=== PATIENT | male | born 1955 | race Caucasian/White ===

== ENCOUNTER 2016-09-25 12:31 | Inpatient (IN) ==
[2016-09-25] MEDS ORDERED: *HR* HYDROmorphone 2 MG/ML SYRINGE IVP ONE ×2 (13:09→15:34)
[2016-09-25] MEDS ORDERED: Ondansetron 4 MG/2 ML VIAL IVP ONE (13:10)
[2016-09-25] MEDS ORDERED: 0.9 % Sodium Chloride 1,000 ML IVC SCH (13:15)
[2016-09-25 13:39] LABS: Basophils # 0.1 K/mcL (0.0-0.2); Eosinophils # 0.1 K/mcL (0.0-0.6); Eosinophils % 1.7 %; Hematocrit 43.2 % (37.5-50.1); Hemoglobin 14.7 g/dL (12.9-16.9); Immature Granulocytes % 0.2 % (0-4); Lymphocytes # 1.5 K/mcL (0.6-4.6); Lymphocytes % 25.2 %; Mean Corpuscular Hemoglobin 33.6 pg (28.0-33.3); Mean Corpuscular Volume 98.9 fL (83.0-100.0); Mean Platelet Volume 10.6 fL (9.4-12.4); Monocytes # 0.4 K/mcL (0.0-1.3); Monocytes % 6.5 %; Neutrophils # 3.9 K/mcL (1.6-8.9); Platelet Count 197 K/mcL (140-400); Red Blood Count 4.37 M/mcL (4.19-5.50); Red Cell Distribution Width 14.4 % (11.5-14.5); Segmented Neutrophils % 65.4 %
[2016-09-25 13:56] LABS: Alanine Aminotransferase 9 Units/L (0-55); Albumin 3.6 g/dL (3.5-5.0); Albumin/Globulin Ratio 0.8 (1.1-2.2); Alkaline Phosphatase 130 Units/L (38-126); Aspartate Amino Transferase 17 Units/L (5-34); BUN/Creatinine Ratio 8 (6-26); Bilirubin,Total 0.5 mg/dL (0.2-1.2); Blood Urea Nitrogen 11 mg/dL (8-26); Carbon Dioxide 27 mEq/L (19-29); Chloride 101 mEq/L (98-109); Globulin 4.4 g/dL (2.4-3.5); Glucose 137 mg/dL (70-99); Lipase 10 Units/L (8-78); Osmolality,Calculated 288 (280-300); Potassium 3.2 mEq/L (3.5-4.5); Sodium 138 mEq/L (136-145); eGFR For African Americans > 60 (> 60); eGFR For Non-African Americans 55 (> 60)
--- NOTE | 2016-09-25 15:33 | Emergency Department Note ---
Disposition Clinical Impression: Abdominal pain Qualifiers: Abdominal location: generalized Qualified Code(s): R10.84 - Generalized abdominal pain Disposition: Admitted As Inpatient Time of Disposition: 16:25 Abdominal Pain HPI - General Chief Complaint: ED Abdominal Pain Stated Complaint: Blocked Bowel Time Seen by Provider: 09/25/16 13:05 Source: patient - History of Present Illness HPI Narrative: Mr. 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 Mr. Muñiz presents with 1 week history of nausea, vomitting, diarrhea, and constipation. He took a large amount of metamucil this weekend which resulted in diarrhea. Mr. Muñiz denies any fevers, chest pain, shortness of breath, dysuria, hematuria, or increased frequency in urination. He does however state he has had a few episodes of hematochezia. Pain Scale: 8 - Related Data Home Medications Medication Instructions Recorded Confirmed Celecoxib [Celebrex] 200 mg PO BID 09/25/16 09/25/16 Duloxetine HCl [Cymbalta] 120 mg PO DAILY 09/25/16 09/25/16 HYDROmorphone [Dilaudid] 8 mg PO Q6HR PRN 09/25/16 09/25/16 Levothyroxine [Levothyroxine 274 mcg PO DAILY@0630 09/25/16 09/25/16 Sodium] amLODIPine [Norvasc] 5 mg PO DAILY 09/25/16 09/25/16 diazePAM [Valium] 5 mg PO Q6H PRN 09/25/16 09/25/16 Allergies Allergy/AdvReac Type Severity Reaction Status Date / Time No Known Allergies Allergy Verified 10/16/14 16:44 Constitutional: Denies: fever, chills Cardiovascular: Denies: chest pain, palpitations, orthopnea, edema, syncope Respiratory: Denies: cough, dyspnea Gastrointestinal: Reports: abdominal pain, nausea, vomiting, diarrhea, constipation, hematochezia Musculoskeletal: Reports: back pain Integumentary: Denies: rash Neurological: Reports: weakness, numbness. Denies: headache Abdominal Pain PMH - Past Medical History Medical history: Reports: hypertension, thyroid disease, other Psychiatric history: Reports: depression - Social History Smoking status: Current every day smoker Alcohol use: Reports: none Drug use: Reports: none Physical Exam - General Limitations: no limitations General appearance: alert, in no apparent distress - Respiratory Respiratory exam: Present: normal lung sounds bilaterally. Absent: respiratory distress, wheezes - Cardiovascular Cardiovascular exam: Present: regular rate, normal rhythm. Absent: tachycardia , irregular rhythm, systolic murmur, diastolic murmur, rubs, gallop - Abdominal Exam Abdominal exam: Present: soft, normal bowel sounds. Absent: distention, guarding, rebound, rigidity - Extremities Exam Extremities exam: Absent: pedal edema - Back Exam Back exam: Absent: CVA tenderness (R), CVA tenderness (L) - Neurological Exam Neurological exam: Present: alert, oriented X3 - Psychiatric Psychiatric exam: Present: anxious, other (Patient talking slowly. ) Course Course Narrative: Patient's CT scan shows rectal wall thickening suggestive of malignancy. With intractable abdominal pain. Will consult medicine for inpatient workup. - Reevaluation(s) Reevaluation #1: Spoke with Dr. Winn on medicine service. They will admit patient. Vital Signs Temperature 98.3 F 09/25/16 12:32 Pulse Rate 60 09/25/16 12:32 Respiratory Rate 18 09/25/16 12:32 Blood Pressure 152/97 09/25/16 12:32 O2 Sat by Pulse Oximetry 97 09/25/16 12:32 Temperature 98.3 F 09/25/16 12:32 Pulse Rate 75 09/25/16 16:11 Respiratory Rate 14 09/25/16 16:11 Blood Pressure 139/83 09/25/16 16:11 O2 Sat by Pulse Oximetry 93 09/25/16 16:11 Oxygen Delivery Oxygen Delivery Room Air Abdominal Pain - Differential Diagnosis Differential Diagnosis: Likely: abdominal pain non-specific - Medical Records Medical records reviewed: Yes I reviewed the patient's medical records. - Lab Data Lab results reviewed: Yes I reviewed the patient's lab results. Result diagrams: 09/25/16 13:27 09/25/16 13:27 - Radiology Data Radiology results reviewed: Yes I reviewed the patient's radiology results. Abdomen/Pelvis CT 09/25/16 14:30 IMPRESSION: There is some questionable asymmetric rectal wall thickening along the right. Although this may be artifactual due to peristalsis or some adherent stool, malignancy is not excluded. Clinical correlation recommended. Trabeculated appearing bladder which may be related to chronic bladder outlet obstruction or neurogenic bladder. D/ / Drea Chamberlain MD / Drea Chamberlain MD Interpreting Provider: Drea Chamberlain MD Attestation Statement - Attestation Attestation: Patient was seen with resident physician. I reviewed the history, physical, assessment and plan, and agree with the findings. I also personally evaluated this patient and had [id number] time with this patient. 61-year-old male presents to the emergency department with chief complaint of thinking he has a bowel obstruction. Patient has a history of abdominal issues since . He says the last week had nausea vomiting and intermittent diarrhea and constipation. He has tried multiple enemas and stool softeners without significant improvement in his symptoms. He has also had intermittent what he thinks may be blood in his stool but not recently. He also has diffuse abdominal pain especially in the left side with his symptoms. On examination vital signs are stable ENT is unremarkable heart and lungs normal. Abdomen is soft there is tenderness diffusely especially in the left side without guarding or rigidity extremities are unremarkable neurologically patient is intact. ED course CT scan of the abdomen and pelvis revealed changes in the colon consistent with possible malignancy. He was given several doses of pain medication without significant improvement in his abdominal pain. Patient does have a history of chronic pain management issues, but even with significant dosing here we are unable to get him comfortable. Accommodation the fact that he may have a new malignancy, we felt it important to admit the patient for both pain control and management as well as additional workup is indicated. Hospital service was notified. They agreed to accept the patient for admission to the hospital for further evaluation and treatment. The dynamically patient remained stable in the emergency department. Agree with resident physician assessment and plan.
[2016-09-25] MEDS ORDERED: 0.9 % Sodium Chloride 1,000 ML IVC ONE (15:34)
[2016-09-25] MEDS ORDERED: *HR* LORazepam 2 MG/ML VIAL IVP ONE (15:54)
--- NOTE | 2016-09-25 17:29 | Internal Med History&Physical ---
<DeenaUlises Finch - Last Filed: 09/25/16 19:55> Date of Encounter: 09/25/16 Time of Encounter: 17:00 Assessment and Plan (1) Chronic constipation Current visit: Yes Status: Acute Patient has history of chronic constipation due to opioid pain medication use. Patient presents with acute on chronic constipation during this admission which is causing abdominal pain and scant amounts of diarrhea. CT of abdomen and pelvis today with IV and oral contrast shows questionable asymmetric rectal wall thickening along the right which may be artifactual due to peristalsis or some adherent stool but malignancy cannot be excluded. Clinical correlation recommended. Surgical consult placed with orders for rectal enemas and MiraLAX/ Gatorade prep. Patient's previous colonoscopy was 10 years ago. Colonoscopy may be ordered based on surgical consult recommendations. Will hold patient's Dilaudid at present time. IV fluids 100 mL per hour ordered and patient to be placed on full liquid diet to be advanced as tolerated. Monitor I&O. (2) Nausea & vomiting Current visit: Yes Status: Acute Patient reports nausea and vomiting for the past three weeks which has worsened and is accompanied by chronic constipation with scant amounts of diarrhea. IV Zofran ordered PRN and IVP Protonix 40 mg daily ordered. Will monitor patient for continued signs of N/V and monitor I&O. Qualifiers: Vomiting type: cyclical vomiting Vomiting Intractability: non-intractable Qualified Code(s): G43.A0 - Cyclical vomiting, not intractable (3) Abdominal pain Current visit: Yes Status: Acute Patient presents with acute abdominal pain related to chronic constipation and probable bowel obstruction based on CT today which shows questionable asymmetric rectal wall thickening along the right which may be due to peristalsis or some adherent stool, but malignancy cannot be excluded. Consult to surgery placed and discussed. Orders for rectal enemas and Miralax/Gatorade bowel prep placed to relieve constipation/possible impaction. Will monitor I&O. IV Zofran ordered PRN. IVP Protonix 40 mg daily ordered. Will hold patient's Dilaudid due to history of chronic constipation due to opioid pain medication use. Qualifiers: Abdominal location: generalized Qualified Code(s): R10.84 - Generalized abdominal pain (4) Neurogenic bladder Current visit: Yes Status: Acute Patient presents with neurogenic bladder based on CT scan of abdomen today which showed trabeculated appearing bladder which may be related to chronic bladder outlet obstruction or neurogenic bladder. Bladder scan performed at bedside which showed residual amount of 520. Mena catheter ordered. Will monitor I&O. Urine culture ordered in ED and we will review results when available. (5) Tobacco abuse counseling Current visit: Yes Status: Acute Patient is current smoker reporting he smokes one half pack per day. Patient counseled for 10 minutes on importance of tobacco cessation which he confirms understanding and agreement. Nicotine patch 21 mg ordered daily. (6) Muscle spasm of both lower legs Current visit: Yes Status: Chronic Patient presents with chronic muscle spasms of both lower extremities. Patient reports he previously took Valium 10 mg every 6 for muscle spasms but his PCP reduced dosage to 5 mg Q6 which he states is ineffective. Will change valium 5 mg to PRN and add Flexeril 10 mg TID scheduled as first line for spasms. Will not give both medications due to contraindications. If Flexeril is effective, will stop Valium order. (7) Thyroid disease Current visit: Yes Status: Chronic Patient presents with history of chronic thyroid disease. Will continue patient' s Synthroid. (8) HTN (hypertension) Current visit: Yes Status: Chronic Patient presents with history of chronic hypertension. Monitor patient vital signs. Will continue patient's Norvasc. Qualifiers: Hypertension type: essential hypertension Qualified Code(s): I10 - Essential (primary) hypertension (9) DVT prophylaxis Current visit: Yes Status: Acute Patient to be placed on DVT prophylaxis due to current admission protocol and bed rest status. Heparin 5,000 units SQ Q8 ordered. Internal Medicine - H&P: HPI Chief complaint: Abdominal Pain d/t Blocked Bowel Admitted From: Emergency Dept Plans for Post Hospital Care: Home History of present illness: Mr. Muñiz is a 61 year old male who presents from the ED with chief complaint of abdominal pain related to inability to have bowel movement. Patient reports nausea, vomiting, constipation, and small amounts of diarrhea for the past 3 weeks. He states last bowel movement was last night with scant amount of nonbloody diarrhea. He also reports fevers and chills. Patient has a history of constipation due to opioid pain medications. Patient also reports urinary retention problems and only is able to void small amounts. Patient denies chest pain, shortness of breath, dysuria, unusual bleeding, altered mental status, falls, or recent illness. CT of the abdomen and pelvis today with IV and oral contrast shows there is some questionable asymmetric rectal wall thickening along the right. Although this may be artifactual due to peristalsis or some adherent stool, malignancy is not excluded. Clinical correlation recommended trabeculated appearing bladder which may be related to chronic bladder outlet obstruction or neurogenic bladder. Patient is at moderate risk for further morbidity due to current symptoms and he will be placed as inpatient status with orders for surgical consult due to current fecal impaction and possible colonoscopy. Patient reports previous colonoscopy was 10 years ago. Orders for rectal enemas and MiraLAX with Gatorade bowel prep placed per discussion with surgical consult. Patient received IV fluids at 100 mL per hour with orders for IV Zofran when necessary an IVP Protonix 40 mg daily. We will insert Mena catheter for patient's urinary retention based on bladder scan which was performed showing 520 residual. Patient to be placed on liquid diet to be advanced as tolerated. Will monitor patient's I&O. Time spent with patient >50 minutes. Past Med Surg Social Fam HX - Past Medical History Source: patient Medical history: hypertension, thyroid disease, other Psychiatric history: depression - Past Surgical History Surgical History: appendectomy, other - Social History Smoking Status: Current every day smoker Packs per day: 1/2 PPD Smokeless Tobacco Status: No Alcohol use: none Drug use: none Current living situation: Home Activity Level: Independent ambulation Recent Out of Country Travel Within the Last 8 Weeks: No Exposure or Possible Exposure to Illness During Travel: No - Family History Mother Race: Family Member Ethnicity: Non- Living Status: Age at : 57 Cause of : Metastatic cancer of the lung to the brain Hx Family Cancer: Yes (Lung cancer with mets to brain) Father Race: Family Member Ethnicity: Non- Living Status: Age at : 74 Cause of : HD Hx Family Cardiac Disorders: Yes (HTN, HD) Hx Family Endocrine Disorder: Yes (Thyroid disease) Brother Race: Family Member Ethnicity: Non- Living Status: Still Living Hx Family Musculoskeletal Disorders: Yes (RA) Sister Race: Family Member Ethnicity: Non- Living Status: Still Living Hx Family Medical Disorders: No Internal Medicine - H&P: Meds Celecoxib [Celebrex] 200 mg PO BID 09/25/16 [History] Duloxetine HCl [Cymbalta] 120 mg PO DAILY 09/25/16 [History] HYDROmorphone [Dilaudid] 8 mg PO Q6HR PRN 09/25/16 [History] Levothyroxine [Levothyroxine Sodium] 274 mcg PO DAILY@0630 09/25/16 [History] amLODIPine [Norvasc] 5 mg PO DAILY 09/25/16 [History] diazePAM [Valium] 5 mg PO Q6H PRN 09/25/16 [History] Allergies No Known Allergies Allergy (Verified 10/16/14 16:44) All Systems PM: A 10-system review of systems was performed and is negative for pertinent findings except as documented above in the HPI. - Constitutional Constitutional: no chills, no fever(s), no night sweats - EENT Eyes: no change in vision, no discharge, no pain, no photophobia Ears: no ear discharge, no ear pain, no tinnitus Nose, mouth and throat: no dysphagia, no nasal discharge, no neck pain, no sore throat - Breasts Breasts: as per HPI - Cardiovascular Cardiovascular ROS IM: no chest pain, no diaphoresis, no dyspnea, no lightheadedness, no palpitations, no syncope - Respiratory Respiratory: no cough, no dyspnea, no wheezing, no excessive phlegm production - Gastrointestinal Gastrointestinal: as per HPI, abdominal pain, constipation, diarrhea (Small amounts), nausea, vomiting - Genitourinary Genitourinary ROS male: as per HPI, difficulty urinating, urinary hesitancy - Musculoskeletal Musculoskeletal ROS IM: as per HPI, muscle cramps, no numbness, no tingling - Integumentary Integumentary IM: no rash, no unusual bruising - Neurological Neurological ROS: no confusion, no convulsions, no focal weakness, no numbness, no tingling, no tremor(s) - Psychiatric Psychiatric: as per HPI - Endocrine Endocrine IM: as per HPI - Hematologic/Lymphatic Hematologic/Lymphatic: no easy bruising - Allergic/Immunologic Allergic/Immunologic: as per HPI - Constitutional Vitals: Temp Pulse Resp BP Pulse Ox 98.3 F 75 14 131/80 93 09/25/16 12:32 09/25/16 16:11 09/25/16 17:13 09/25/16 17:13 09/25/16 16:11 General appearance: Present: cooperative, A&O X 3, pleasant, no acute distress, obese, answers questions appropriately - Head Head exam: Present: atraumatic, normocephalic - Eye Eye exam: Present: PERRL, conjuntiva pink, sclera anicteric Pupils: Present: PERRL - ENT ENT exam: Present: normal exam, normal external ear exam - Neck Neck exam general surgery: Present: normal inspection, supple, trachea midline. Absent: lymphadenopathy - Respiratory Respiratory exam: Present: CTAB. Absent: accessory muscle use, rales, rhonchi, wheezes - Cardiovascular Cardiovascular exam: Present: RRR, +S1, +S2. Absent: diastolic murmur, gallop, rubs, systolic murmur - GI/Abdominal GI/Abdominal exam: Present: diminished bowel sounds, soft, tenderness - Rectal Rectal exam: Present: fecal impaction - External exam: Present: normal external exam - Extremities Exam Extremities exam: Present: warm, radial pulses palpable and symmetrical. Absent : calf tenderness, cyanotic, pedal edema - Back Exam Back exam: Present: normal inspection - Neurological Exam Neurological exam: Present: CN II-XII intact, oriented X3, no focal deficits. Absent: pronater drift, facial droop, speech deficit - Psychiatric Psychiatric exam: Present: normal affect, normal mood - Skin Skin exam: Present: dry, intact Internal Med - H&P Results - Labs CBC & Chem 7: 09/25/16 13:27 09/25/16 13:27 - Diagnostic Studies CT scan - abdomen Additional comments: Impressions Abdomen/Pelvis CT 09/25/16 14:30 IMPRESSION: There is some questionable asymmetric rectal wall thickening along the right. Although this may be artifactual due to peristalsis or some adherent stool, malignancy is not excluded. Clinical correlation recommended. Trabeculated appearing bladder which may be related to chronic bladder outlet obstruction or neurogenic bladder. D/ / Drea Chamberlain MD / Drea Chamberlain MD Interpreting Provider: Drea Chamberlain MD <Juan Mcpherson - Last Filed: 09/26/16 17:37> Date of Encounter: 09/26/16 Internal Medicine - H&P: HPI History of present illness: Mr. Muñiz is a 61 year old male All Systems PM: A 10-system review of systems was performed and is negative for pertinent findings except as documented above in the HPI. - Constitutional Vitals: Temp Pulse Resp BP Pulse Ox 97.5 F L 76 18 160/91 97 09/26/16 15:24 09/26/16 15:24 09/26/16 15:24 09/26/16 15:24 09/26/16 15:24 Internal Med - H&P Results - Labs CBC & Chem 7: 09/26/16 05:57 09/26/16 05:57 Labs: Short CBC 09/26/16 Range/Units 05:57 WBC 3.7 L (4.3-11.1) K/mcL Hgb 12.9 D (12.9-16.9) g/dL Hct 38.8 (37.5-50.1) % Plt Count 157 (140-400) K/mcL Neutrophils # 1.9 (1.6-8.9) K/mcL BMP 09/26/16 05:57 Sodium 140 Potassium 3.6 Chloride 107 Carbon Dioxide 28 BUN 7 L Creatinine 1.06 Glucose 81 Calcium 8.2 L Urine 09/25/16 Range/Units 20:00 Urine Color Yellow (Yellow) Urine Clarity Clear (Clear) Urine pH 6.0 (5.0-8.0) pH Units Ur Specific [place] > 1.030 H (1.010-1.025) Urine Protein Negative (Neg-Trace) mg/dL Urine Glucose (UA) Normal (Normal) mg/dL - Attending Attestation I examined this patient and my medical decision-making was reviewed with the IMPROVEMENT MANAGER. I agree with the documented findings, disposition and treatment plan as described .
[2016-09-25] MEDS ORDERED: Ondansetron 4 MG/2 ML VIAL IVP PRN (18:00)
[2016-09-25] MEDS ORDERED: Naloxone 0.4 MG/ML INJ IVP PRN (18:00)
[2016-09-25] MEDS ORDERED: Polyethylene Glycol 3350 255 GM POWDER PO ONE (18:15)
[2016-09-25] MEDS: Pantoprazole 40 MG VIAL IVP SCH (18:46)
[2016-09-25] MEDS: 0.9 % Sodium Chloride 1,000 ML IVC SCH (18:47)
[2016-09-25 20:23] LABS: Bilirubin,Urine Negative (Negative); Blood,Urine Negative (Negative); Clarity,Urine Clear (Clear); Color,Urine Yellow (Yellow); Glucose,Urine (UA) Normal (Normal); Ketones,Urine Negative (Negative); Leukocyte Esterase,Urine Negative (Negative); Nitrite,Urine Negative (Negative); Protein,Urine Negative (Neg-Trace); Specific Gravity,Urine > 1.030 (1.010-1.025); Urobilinogen,Urine Normal (Normal)
[2016-09-25] MEDS: Celecoxib 200 MG CAPSULE PO SCH (21:49)
[2016-09-25] MEDS: Nicotine 21 MG PATCH.TD24 TD SCH (21:49)
[2016-09-26] MEDS: *HR* Heparin 5,000 UNIT/ML VIAL SQ SCH ×3 (02:23→16:54)
[2016-09-26 06:18] LABS: Basophils % 1.1 %; Eosinophils # 0.1 K/mcL (0.0-0.6); Eosinophils % 2.5 %; Hematocrit 38.8 % (37.5-50.1); Immature Granulocytes % 0.3 % (0-4); Lymphocytes # 1.3 K/mcL (0.6-4.6); Lymphocytes % 36.7 %; Mean Corpuscular HGB Conc 33.2 g/dL (31.6-35.5); Mean Corpuscular Hemoglobin 33.3 pg (28.0-33.3); Mean Corpuscular Volume 100.3 fL (83.0-100.0); Mean Platelet Volume 10.8 fL (9.4-12.4); Monocytes # 0.3 K/mcL (0.0-1.3); Monocytes % 8.8 %; Neutrophils # 1.9 K/mcL (1.6-8.9); Platelet Count 157 K/mcL (140-400); Red Blood Count 3.87 M/mcL (4.19-5.50); Red Cell Distribution Width 14.7 % (11.5-14.5); Segmented Neutrophils % 50.6 %
[2016-09-26 06:19] LABS: Hemoglobin 12.9 g/dL (12.9-16.9)
[2016-09-26 06:20] LABS: INR 1.2; Prothrombin Time 12.9 Seconds (9.4-12.1)
[2016-09-26 06:23] LABS: Activated Partial Thrombo Time 36.1 Seconds (26.0-36.0)
[2016-09-26 06:27] LABS: BUN/Creatinine Ratio 7 (6-26); Blood Urea Nitrogen 7 mg/dL (8-26); Calcium 8.2 mg/dL (8.6-10.8); Carbon Dioxide 28 mEq/L (19-29); Chloride 107 mEq/L (98-109); Chol/HDL Ratio 7.3 (0-4.9); Cholesterol 154 mg/dL (< 200); Glucose 81 mg/dL (70-99); HDL Cholesterol 21 mg/dL (40-59); LDL Cholesterol,Calculated 94 mg/dL (0-99); Magnesium 1.7 mg/dL (1.6-2.6); Osmolality,Calculated 287 (280-300); Potassium 3.6 mEq/L (3.5-4.5); Sodium 140 mEq/L (136-145); Triglycerides 195 mg/dL (< 150); eGFR For African Americans > 60 (> 60); eGFR For Non-African Americans > 60 (> 60)
[2016-09-26] MEDS: 0.9 % Sodium Chloride 1,000 ML IVC SCH ×2 (07:00→18:41)
[2016-09-26] MEDS: Celecoxib 200 MG CAPSULE PO SCH ×2 (09:08→20:53)
[2016-09-26] MEDS: amLODIPine 5 MG TABLET PO SCH (09:08)
[2016-09-26] MEDS: Nicotine 21 MG PATCH.TD24 TD SCH (09:09)
[2016-09-26] MEDS: Pantoprazole 40 MG VIAL IVP SCH (09:10)
[2016-09-26] MEDS: diazePAM 5 MG TABLET PO PRN ×2 (11:54→16:54)
--- NOTE | 2016-09-26 14:32 | General Surgery Consult Note ---
<Delbert Hartman - Last Filed: 09/26/16 16:21> Date of Encounter: 09/26/16 Time of Encounter: 14:20 Assessment and Plan (1) Abdominal pain Current Visit: Yes Status: Acute The patient had BM yesterday night and symptoms are improving. He has surgical history of emergent appendectomy. Patient has chronic constipation secondary to opioid pain management. 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 His colonoscopy was over [address] abdomen/pelvis was unable to rule out malignancy or bowel obstruction Will set up appointment for outpatient colonoscopy to allow for bowel rest Hold dilaudid until colonoscopy, if possible Supportive and pain care Colace 100mg BID, Continue Miralax prn Continue Zofran and Protonix for nausea Ambulate TID Qualifiers: Abdominal location: generalized Qualified Code(s): R10.84 - Generalized abdominal pain (2) Chronic constipation Current Visit: Yes Status: Acute Follow plan for abdominal pain We recommend Linzess 72 mcg PO daily for bowel maintenance at home (3) Thyroid disease Current Visit: No Status: Chronic Continue Levothyroxine 274 mcg PO daily (4) HTN (hypertension) Current Visit: No Status: Chronic Continue home BP medications Qualifiers: Hypertension type: essential hypertension Qualified Code(s): I10 - Essential (primary) hypertension (5) Neurogenic bladder Current Visit: Yes Status: Acute Patient has good urine output via catheter Continue strict I/Os (6) DVT prophylaxis Current Visit: Yes Status: Acute Heparin 5000 unit [id number] for DVT prophylaxis History of Present Illness Reason for consult: abdominal pain (secondary to fecal impaction and possible) History of present illness: 61 year old male presented to ED yesterday for abdominal pain with nausea, vomiting, constipation, and irregular bowel movements for the past 3 weeks. The patient has a history of chronic constipation due to opioid pain management for back pain. Past surgical history includes emergent appendectomy secondary to a ruptured appendix. CT of the abdomen and pelvis revealed asymmetric rectal wall thickening along the right which may be due to artifact or adherent stool, but malignancy could not be ruled out. Rectal enemas and MiraLAX/Gatorade prep was administered and the patient had a bowel moment yesterday night. Zofran was given for his nausea. He reports that his abdominal pain is improved to 6/10. He still has nausea but has not vomited. He is afibrile and denies chills. He is tolerating full liquid diet. He is currently voiding via catheter secondary to chronic bladder outlet obstruction. His last colonoscopy was over 10 years ago. The patient reports that he prefers an inpatient colonoscopy done at this visit if possible. Past Med Surg Social Fam HX - Past Medical History Medical history: hypertension, thyroid disease, other Psychiatric history: depression - Past Surgical History Surgical History: appendectomy, other - Social History Smoking Status: Current every day smoker Packs per day: 1/2 PPD Smokeless Tobacco Status: No Alcohol use: none Drug use: none - Family History Mother Race: Family Member Ethnicity: Non- Living Status: Age at : 57 Cause of : Metastatic cancer of the lung to the brain Hx Family Cancer: Yes (Lung cancer with mets to brain) Father Race: Family Member Ethnicity: Non- Living Status: Age at : 74 Cause of : HD Hx Family Cardiac Disorders: Yes (HTN, HD) Hx Family Endocrine Disorder: Yes (Thyroid disease) Brother Race: Family Member Ethnicity: Non- Living Status: Still Living Hx Family Musculoskeletal Disorders: Yes (RA) Sister Race: Family Member Ethnicity: Non- Living Status: Still Living Hx Family Medical Disorders: No Medications and Allergies Celecoxib [Celebrex] 200 mg PO BID 09/25/16 [History] Duloxetine HCl [Cymbalta] 120 mg PO DAILY 09/25/16 [History] HYDROmorphone [Dilaudid] 8 mg PO Q6HR PRN 09/25/16 [History] Levothyroxine [Levothyroxine Sodium] 274 mcg PO DAILY@0630 09/25/16 [History] amLODIPine [Norvasc] 5 mg PO DAILY 09/25/16 [History] diazePAM [Valium] 5 mg PO Q6H PRN 09/25/16 [History] Allergies No Known Allergies Allergy (Verified 10/16/14 16:44) Review of Systems All systems PM: A 10-system review of systems was performed and is negative for pertinent findings except as documented above in the HPI. - Constitutional as per HPI, no anorexia, no chills, no fever(s) - Cardiovascular no chest pain, no diaphoresis, no dyspnea, no palpitations, no syncope - Respiratory no cough, no dyspnea - Gastrointestinal as per HPI, abdominal pain, nausea, no hematemesis, no vomiting - Genitourinary difficulty urinating, no dysuria, no flank pain, no hematuria General Surgery Exam Initial Vital Signs Temp Pulse Resp BP Pulse Ox 98.3 F 60 18 152/97 97 09/25/16 12:32 09/25/16 12:32 09/25/16 12:32 09/25/16 12:32 09/25/16 12:32 - General physical appearance well developed, well nourished, moderate distress - Eyes PERRL, normal ocular movement - ENT atraumatic, normocephalic, CN 2-12 grossly intact - Neck no masses, no bruits, trachea midline - Respiratory normal expansion, normal respiratory effort, clear to auscultation - Cardiovascular Cardiovascular exam: Present: RRR, no murmurs/rubs/gallops - Abdomen Abdomen general surgery: Present: bowel sounds present, soft, surgical scars ( 10 cm surgical scar from appendectomy on RUQ). Absent: guarding, rebound Abdominal Tenderness: Present: diffusely - Psychiatric Psychiatric general surgery: Present: A&Ox3, appropriate, oriented to person, oriented to place, oriented to time, speech is normal, memory intact Exam Initial Vital Signs Temp Pulse Resp BP Pulse Ox 98.3 F 60 18 152/97 97 09/25/16 12:32 09/25/16 12:32 09/25/16 12:32 09/25/16 12:32 09/25/16 12:32 Results - Labs 09/26/16 05:57 09/26/16 05:57 Abnormal lab results WBC 3.7 K/mcL (4.3-11.1) L 09/26/16 05:57 RBC 3.87 M/mcL (4.19-5.50) L 09/26/16 05:57 MCV 100.3 fL (83.0-100.0) H 09/26/16 05:57 RDW 14.7 % (11.5-14.5) H 09/26/16 05:57 PT 12.9 Seconds (9.4-12.1) H 09/26/16 05:57 APTT 36.1 Seconds (26.0-36.0) H 09/26/16 05:57 BUN 7 mg/dL (8-26) L 09/26/16 05:57 Lactic Acid 2.8 mmol/L (0.5-2.2) H 09/25/16 13:27 Calcium 8.2 mg/dL (8.6-10.8) L 09/26/16 05:57 Alkaline Phosphatase 130 Units/L (38-126) H 09/25/16 13:27 Globulin 4.4 g/dL (2.4-3.5) H 09/25/16 13:27 Albumin/Globulin Ratio 0.8 (1.1-2.2) L 09/25/16 13:27 Triglycerides 195 mg/dL (< 150) H 09/26/16 05:57 VLDL Cholesterol, Calc 39 mg/dL (< 31) H 09/26/16 05:57 HDL Cholesterol 21 mg/dL (40-59) L 09/26/16 05:57 Cholesterol/HDL Ratio 7.3 (0-4.9) H 09/26/16 05:57 Ur Specific [place] > 1.030 (1.010-1.025) H 09/25/16 20:00 Diabetes panel 09/26/16 Range/Units 05:57 Sodium 140 (136-145) mEq/L Potassium 3.6 (3.5-4.5) mEq/L Chloride 107 (98-109) mEq/L Carbon Dioxide 28 (19-29) mEq/L BUN 7 L (8-26) mg/dL Creatinine 1.06 (0.72-1.25) mg/dL Glucose 81 (70-99) mg/dL Calcium 8.2 L (8.6-10.8) mg/dL Triglycerides 195 H (< 150) mg/dL HDL Cholesterol 21 L (40-59) mg/dL Calcium panel 09/26/16 Range/Units 05:57 Calcium 8.2 L (8.6-10.8) mg/dL Pituitary panel 09/26/16 Range/Units 05:57 Sodium 140 (136-145) mEq/L Potassium 3.6 (3.5-4.5) mEq/L Chloride 107 (98-109) mEq/L Carbon Dioxide 28 (19-29) mEq/L BUN 7 L (8-26) mg/dL Creatinine 1.06 (0.72-1.25) mg/dL Glucose 81 (70-99) mg/dL Calcium 8.2 L (8.6-10.8) mg/dL Adrenal panel 09/26/16 Range/Units 05:57 Sodium 140 (136-145) mEq/L Potassium 3.6 (3.5-4.5) mEq/L Chloride 107 (98-109) mEq/L Carbon Dioxide 28 (19-29) mEq/L BUN 7 L (8-26) mg/dL Creatinine 1.06 (0.72-1.25) mg/dL Glucose 81 (70-99) mg/dL Calcium 8.2 L (8.6-10.8) mg/dL All other labs normal. Consult Discharge Plan - Plan Referrals: Melania Garduno [Primary Care Provider] - <Donn Smith - Last Filed: 09/26/16 18:16> Date of Encounter: 09/26/16 Review of Systems All systems PM: A 10-system review of systems was performed and is negative for pertinent findings except as documented above in the HPI. General Surgery Exam Initial Vital Signs Temp Pulse Resp BP Pulse Ox 98.3 F 60 18 152/97 97 09/25/16 12:32 09/25/16 12:32 09/25/16 12:32 09/25/16 12:32 09/25/16 12:32 Exam Initial Vital Signs Temp Pulse Resp BP Pulse Ox 98.3 F 60 18 152/97 97 09/25/16 12:32 09/25/16 12:32 09/25/16 12:32 09/25/16 12:32 09/25/16 12:32 Results - Labs 09/26/16 05:57 09/26/16 05:57 Abnormal lab results WBC 3.7 K/mcL (4.3-11.1) L 09/26/16 05:57 RBC 3.87 M/mcL (4.19-5.50) L 09/26/16 05:57 MCV 100.3 fL (83.0-100.0) H 09/26/16 05:57 RDW 14.7 % (11.5-14.5) H 09/26/16 05:57 PT 12.9 Seconds (9.4-12.1) H 09/26/16 05:57 APTT 36.1 Seconds (26.0-36.0) H 09/26/16 05:57 BUN 7 mg/dL (8-26) L 09/26/16 05:57 Lactic Acid 2.8 mmol/L (0.5-2.2) H 09/25/16 13:27 Calcium 8.2 mg/dL (8.6-10.8) L 09/26/16 05:57 Alkaline Phosphatase 130 Units/L (38-126) H 09/25/16 13:27 Globulin 4.4 g/dL (2.4-3.5) H 09/25/16 13:27 Albumin/Globulin Ratio 0.8 (1.1-2.2) L 09/25/16 13:27 Triglycerides 195 mg/dL (< 150) H 09/26/16 05:57 VLDL Cholesterol, Calc 39 mg/dL (< 31) H 09/26/16 05:57 HDL Cholesterol 21 mg/dL (40-59) L 09/26/16 05:57 Cholesterol/HDL Ratio 7.3 (0-4.9) H 09/26/16 05:57 Ur Specific [place] > 1.030 (1.010-1.025) H 09/25/16 20:00 Diabetes panel 09/26/16 Range/Units 05:57 Sodium 140 (136-145) mEq/L Potassium 3.6 (3.5-4.5) mEq/L Chloride 107 (98-109) mEq/L Carbon Dioxide 28 (19-29) mEq/L BUN 7 L (8-26) mg/dL Creatinine 1.06 (0.72-1.25) mg/dL Glucose 81 (70-99) mg/dL Calcium 8.2 L (8.6-10.8) mg/dL Triglycerides 195 H (< 150) mg/dL HDL Cholesterol 21 L (40-59) mg/dL Calcium panel 09/26/16 Range/Units 05:57 Calcium 8.2 L (8.6-10.8) mg/dL Pituitary panel 09/26/16 Range/Units 05:57 Sodium 140 (136-145) mEq/L Potassium 3.6 (3.5-4.5) mEq/L Chloride 107 (98-109) mEq/L Carbon Dioxide 28 (19-29) mEq/L BUN 7 L (8-26) mg/dL Creatinine 1.06 (0.72-1.25) mg/dL Glucose 81 (70-99) mg/dL Calcium 8.2 L (8.6-10.8) mg/dL Adrenal panel 09/26/16 Range/Units 05:57 Sodium 140 (136-145) mEq/L Potassium 3.6 (3.5-4.5) mEq/L Chloride 107 (98-109) mEq/L Carbon Dioxide 28 (19-29) mEq/L BUN 7 L (8-26) mg/dL Creatinine 1.06 (0.72-1.25) mg/dL Glucose 81 (70-99) mg/dL Calcium 8.2 L (8.6-10.8) mg/dL All other labs normal. - Attending Attestation I examined this patient and my medical decision-making was reviewed with the Resident Physician. I agree with the documented findings, disposition and treatment plan as described except to the extent set forth below. Review the above assessment and evaluation and agree with the above plan. Patient states that he has not had a bowel movement and has less abdominal discomfort although he does point to his right upper quadrant vessel source of some pain. No nausea. Positive bowel movement however he does have a history of constipation with a bowel movement once every 2-3 days. This is likely due to his polypharmacy. I did personally reviewed the CT scan images showing a questionable thickening of the rectal wall versus adherent stool. His last colonoscopy was greater than 10 years. The patient is agreeable to follow-up as an outpatient possible colonoscopy as an outpatient.
--- NOTE | 2016-09-26 14:52 | Internal Med Progress Note ---
Date of Encounter: 09/26/16 Time of Encounter: 09:40 - Assessment and plan (1) Abdominal pain Current Visit: Yes Status: Acute Assessment and plan: Likely due to chronic constipation. Patent takes PO opiates at home and is not on bowel regimen. Surgery consulted for evaluation of rectal wall thickening on CT. Recommend bowel regimen to clear constipation. Moderate risk for complications. Qualifiers: Abdominal location: generalized Qualified Code(s): R10.84 - Generalized abdominal pain (2) Chronic constipation Current Visit: Yes Status: Acute Assessment and plan: Management as above (3) Muscle spasm of both lower legs Current Visit: Yes Status: Chronic Assessment and plan: Placed back on valium and oral dilaudid for symptom control. (4) Thyroid disease Current Visit: No Status: Chronic (5) HTN (hypertension) Current Visit: Yes Status: Chronic Assessment and plan: Uncontrolled likely due to pain. Will monitor and adjust antihypertensives accordingly. Qualifiers: Hypertension type: essential hypertension Qualified Code(s): I10 - Essential (primary) hypertension (6) Neurogenic bladder Current Visit: Yes Status: Acute Assessment and plan: Rawls catheter in place. Will plan on discharging patient with rawls and follow up with urology as outpatient. (7) Nausea & vomiting Current Visit: Yes Status: Resolved Assessment and plan: This has resolved Qualifiers: Vomiting type: cyclical vomiting Vomiting Intractability: non-intractable Qualified Code(s): G43.A0 - Cyclical vomiting, not intractable (8) DVT prophylaxis Current Visit: Yes Status: Acute - Subjective Interval history: Patient complaining of spasms in both lower extremities. He has not received Valium that was ordered last night. He has not yet had a bowel movement either. Tolerating oral diet well and has started taking bowel prep as ordered. - Constitutional Vitals: Temp Pulse Resp BP Pulse Ox 97.8 F 57 18 147/84 95 09/26/16 11:39 09/26/16 11:39 09/26/16 11:39 09/26/16 11:39 09/26/16 11:39 General appearance: Present: cooperative, A&O X 3, pleasant, no acute distress, obese, answers questions appropriately - Neck Neck exam general surgery: Present: supple, trachea midline. Absent: lymphadenopathy - Respiratory Respiratory exam: Present: CTAB. Absent: accessory muscle use, rales, rhonchi, wheezes - Cardiovascular Cardiovascular exam: Present: RRR, +S1, +S2. Absent: diastolic murmur, gallop, rubs, systolic murmur - GI/Abdominal GI/Abdominal exam: Present: normal bowel sounds, soft, no peritoneal signs. Absent: distended, tenderness - Extremities Exam Extremities exam: Present: warm, radial pulses palpable and symmetrical. Absent : calf tenderness, cyanotic, pedal edema Internal Medicine: Result - Labs CBC & Chem 7: 09/26/16 05:57 09/26/16 05:57 Labs: Short CBC 09/26/16 Range/Units 05:57 WBC 3.7 L (4.3-11.1) K/mcL Hgb 12.9 D (12.9-16.9) g/dL Hct 38.8 (37.5-50.1) % Plt Count 157 (140-400) K/mcL Neutrophils # 1.9 (1.6-8.9) K/mcL BMP 09/26/16 05:57 Sodium 140 Potassium 3.6 Chloride 107 Carbon Dioxide 28 BUN 7 L Creatinine 1.06 Glucose 81 Calcium 8.2 L Urine 09/25/16 Range/Units 20:00 Urine Color Yellow (Yellow) Urine Clarity Clear (Clear) Urine pH 6.0 (5.0-8.0) pH Units Ur Specific [place] > 1.030 H (1.010-1.025) Urine Protein Negative (Neg-Trace) mg/dL Urine Glucose (UA) Normal (Normal) mg/dL - ABG Interpretation ABG results: PT/INR, D-dimer PT 12.9 Seconds (9.4-12.1) H 09/26/16 05:57 Consult Discharge Plan - Plan Referrals: Melania Garduno [Primary Care Provider] -
[2016-09-26] MEDS: *HR* HYDROmorphone 4 MG TABLET PO PRN (19:18)
[2016-09-27] MEDS: *HR* Heparin 5,000 UNIT/ML VIAL SQ SCH ×2 (00:17→08:53)
[2016-09-27] MEDS: 0.9 % Sodium Chloride 1,000 ML IVC SCH (05:06)
[2016-09-27 07:21] LABS: BUN/Creatinine Ratio 5 (6-26); Calcium 8.3 mg/dL (8.6-10.8); Carbon Dioxide 25 mEq/L (19-29); Chloride 106 mEq/L (98-109); Glucose 72 mg/dL (70-99); Osmolality,Calculated 285 (280-300); Sodium 140 mEq/L (136-145); eGFR For African Americans > 60 (> 60); eGFR For Non-African Americans > 60 (> 60)
[2016-09-27 07:35] LABS: Blood Urea Nitrogen 4 mg/dL (8-26)
[2016-09-27 07:36] LABS: Potassium 3.4 mEq/L (3.5-4.5)
[2016-09-27 08:06] LABS: Eosinophils # 0.1 K/mcL (0.0-0.6); Eosinophils % 1.3 %; Hematocrit 36.7 % (37.5-50.1); Hemoglobin 12.5 g/dL (12.9-16.9); Immature Granulocytes % 0.3 % (0-4); Lymphocytes # 1.7 K/mcL (0.6-4.6); Lymphocytes % 45.2 %; Mean Corpuscular HGB Conc 34.1 g/dL (31.6-35.5); Mean Corpuscular Hemoglobin 34.1 pg (28.0-33.3); Mean Platelet Volume 11.2 fL (9.4-12.4); Monocytes # 0.4 K/mcL (0.0-1.3); Monocytes % 9.1 %; Neutrophils # 1.7 K/mcL (1.6-8.9); Platelet Count 141 K/mcL (140-400); Red Blood Count 3.67 M/mcL (4.19-5.50); Red Cell Distribution Width 14.5 % (11.5-14.5); Segmented Neutrophils % 43.1 %
[2016-09-27] MEDS: *HR* HYDROmorphone 4 MG TABLET PO PRN (08:53)
[2016-09-27] MEDS: Pantoprazole 40 MG VIAL IVP SCH (08:53)
[2016-09-27] MEDS: Celecoxib 200 MG CAPSULE PO SCH (08:53)
[2016-09-27] MEDS: diazePAM 5 MG TABLET PO PRN (08:53)
[2016-09-27] MEDS: amLODIPine 5 MG TABLET PO SCH (08:53)
[2016-09-27] MEDS: Nicotine 21 MG PATCH.TD24 TD SCH (08:54)
--- NOTE | 2016-09-27 11:03 | General Surgery Progress Note ---
Date of Encounter: 09/27/16 Time of Encounter: 11:00 - Assessment and Plan (1) Chronic constipation Current Visit: Yes Status: Acute Continue stool softner and Miralax daily Transition to Linzess at discharge for opioid induced constipation Advance diet as tolerated Surgery will sign off at this time, thank you for allowing us to participate in the care of this patient, please call with any further questions or concerns. (2) Abnormal CT scan, pelvis Current Visit: Yes Status: Acute Plan for outpatient follow-up with Dr. Smith to discuss colonoscopy- rectal wall thickening Last colonoscopy greater than 10 years ago Subjective Patient reports: no new complaints, feels better, flatus, bowel movement ( reports a small amount last evening), afebrile, other (full liquid tray has from breakfast- patient ate 0%) Objective Vital Signs - Last 8 Hours Temp Pulse Resp BP Pulse Ox 09/27/16 07:59 97.6 F 68 12 170/83 96 Intake and Output 09/26/16 09/27/16 09/27/16 23:59 07:59 15:59 Intake Total 1400 / 1400 1000 / 1000 Output Total 800 / 800 875 / 875 Balance 600 / 600 125 / 125 Intake: IV Fluids 1000 / 1000 1000 / 1000 0.9 % Sodium Chloride 1, 1000 / 1000 1000 / 1000 000 ML @ 100 mls/hr IVC . Q10H YVETTE Rx#:[id number] Oral 400 / 400 Output: Catheter 800 / 800 875 / 875 Other: Stool Size Smear Blood Glucose* 93 68 - General physical appearance well developed, well nourished, moderate pain, chronically ill - Eyes normal ocular movement - ENT normal mucosa, atraumatic, normocephalic - Neck Neck exam: trachea midline - Respiratory normal respiratory effort, clear to auscultation - Cardiovascular Cardiovascular exam: Present: RRR - Abdomen Abdomen: Present: bowel sounds present, soft, non tender - Genitourinary other (rawls catheter to SD with clear yellow urine noted) - Neurologic CN 2-12 grossly intact - Psychiatric oriented to time, oriented to person, oriented to place, speech is normal, memory intact - Labs 09/27/16 06:26 09/27/16 06:26 Diabetes panel 09/27/16 Range/Units 06:26 Sodium 140 (136-145) mEq/L Potassium 3.4 L (3.5-4.5) mEq/L Chloride 106 (98-109) mEq/L Carbon Dioxide 25 (19-29) mEq/L BUN 4 L (8-26) mg/dL Creatinine 0.84 (0.72-1.25) mg/dL Glucose 72 (70-99) mg/dL Calcium 8.3 L (8.6-10.8) mg/dL Calcium panel 09/27/16 Range/Units 06:26 Calcium 8.3 L (8.6-10.8) mg/dL Pituitary panel 09/27/16 Range/Units 06:26 Sodium 140 (136-145) mEq/L Potassium 3.4 L (3.5-4.5) mEq/L Chloride 106 (98-109) mEq/L Carbon Dioxide 25 (19-29) mEq/L BUN 4 L (8-26) mg/dL Creatinine 0.84 (0.72-1.25) mg/dL Glucose 72 (70-99) mg/dL Calcium 8.3 L (8.6-10.8) mg/dL Adrenal panel 09/27/16 Range/Units 06:26 Sodium 140 (136-145) mEq/L Potassium 3.4 L (3.5-4.5) mEq/L Chloride 106 (98-109) mEq/L Carbon Dioxide 25 (19-29) mEq/L BUN 4 L (8-26) mg/dL Creatinine 0.84 (0.72-1.25) mg/dL Glucose 72 (70-99) mg/dL Calcium 8.3 L (8.6-10.8) mg/dL Consult Discharge Plan - Plan Referrals: Melania Garduno [Primary Care Provider] - Donn Smith MD [Partnered Physician] - 10/06/16 3:35 pm (hospital follow- up; discuss colonoscopy)
[2016-09-27 11:18] VITALS: BP 169/89
--- NOTE | 2016-09-27 13:43 | Discharge Summary ---
Date of Encounter: 09/27/16 Time of Encounter: 13:39 - Discharge Diagnosis (1) Abdominal pain Priority: Primary Status: Acute Qualifiers: Abdominal location: generalized Qualified Code(s): R10.84 - Generalized abdominal pain (2) Chronic constipation Priority: Secondary Status: Acute (3) Muscle spasm of both lower legs Priority: Secondary Status: Chronic (4) Thyroid disease Priority: Secondary Status: Chronic (5) HTN (hypertension) Priority: Secondary Status: Chronic Qualifiers: Hypertension type: essential hypertension Qualified Code(s): I10 - Essential (primary) hypertension (6) Neurogenic bladder Priority: Secondary Status: Acute (7) Nausea & vomiting Priority: Secondary Status: Resolved Qualifiers: Vomiting type: cyclical vomiting Vomiting Intractability: non-intractable Qualified Code(s): G43.A0 - Cyclical vomiting, not intractable (8) DVT prophylaxis Priority: Secondary Status: Acute - Discharge Medications Prescriptions: Cyclobenzaprine [Flexeril] 10 mg PO TID #60 tab Linaclotide [Linzess] 145 mcg PO DAILY #30 capsule Home Medications: Celecoxib [Celebrex] 200 mg PO BID 09/25/16 [History] Duloxetine HCl [Cymbalta] 120 mg PO DAILY 09/25/16 [History] HYDROmorphone [Dilaudid] 8 mg PO Q6HR PRN 09/25/16 [History] Levothyroxine [Levothyroxine Sodium] 274 mcg PO DAILY@0630 09/25/16 [History] amLODIPine [Norvasc] 5 mg PO DAILY 09/25/16 [History] diazePAM [Valium] 5 mg PO Q6H PRN 09/25/16 [History] Cyclobenzaprine [Flexeril] 10 mg PO TID #60 tab 09/27/16 [Rx] Linaclotide [Linzess] 145 mcg PO DAILY #30 capsule 09/27/16 [Rx] Allergies/Adverse Reactions: Allergies No Known Allergies Allergy (Verified 10/16/14 16:44) Procedures/tests Complete & Pending: Procedures Performed prior 72 hours Category Date Time Status ECG 12 lead ECG [ECG] Routine Y 09/25/16 19:33 Ordered Date of admission: 09/25/16 18:00 Primary care physician: Melania Garduno Consults: 09/25/16 18:06 Consult to [facility] [CONS] Routine Reason for SW Consult: patient requested social work administrator for home health setup. 09/25/16 18:07 Consult to Surgery [CONS] Routine Consulting Provider: Sydney Bolaños Surgical Reason for Consult: Patient has history of constipation r/t pain medication use. Is currently impacted and will use rectal enemas to disimpact patient. Last colonoscopy was [address] of abd/pelvis today shows asymmetrical rectal wall thickening on the right. Call Completed: Yes Discharging clinician: Allie Prince Anticipated date of discharge: 09/27/16 - Patient Status Disposition: Home Health Service Condition: Good Overall status at discharge: patient is progressing back to baseline - Discharge Instructions Follow Up With: Donn Smith MD [Partnered Physician] - 10/06/16 3:35 pm (hospital follow- up; discuss colonoscopy) Melania Garduno [Primary Care Provider] - (in 1-2 weeks) Additional Instructions: Follow up with urology in 1 week for neurogenic bladder - Diet and Activity Activity: increase activity as tolerated Diet: low fat, low cholesterol, low salt diet Hospital course: Mr. Muñiz is a 61 year old male patient with a history of hypertension, thyroid disease, chronic back pain and lower extremity spasms and chronic constipation was admitted here with acute abdominal pain related to constipation. Is also having severe leg spasms. He was placed on Flexeril for this in addition to his usual pain medications. Surgery was consulted and CT scan had shown possible findings cystoscopy rectal wall thickening. Patient was given MiraLAX to treat his constipation. He has finally had a bowel movement today and is doing much better. His pain seems to be better controlled. Patient's CT scan also showed findings cystoscopy of chronic neurogenic bladder. He underwent a Mena catheter placement in the ER. He can follow up with urology for further management of this condition. He is now tolerating diet and is stable to be discharged home with home health and physical therapy. Surgery recommends that he be placed on Linzess for opioid-induced constipation as patient takes Dilaudid orally at home. He will follow up with surgery after discharge for colonoscopy as outpatient. - Time Spent with Patient Total time spent providing and/or coordinating discharge services: Greater than 30 minutes (35 min) - Constitutional Vitals: Temp Pulse Resp BP Pulse Ox 97.8 F 56 16 169/89 99 09/27/16 11:07 09/27/16 11:07 09/27/16 11:07 09/27/16 11:07 09/27/16 11:07 General appearance: Present: cooperative, A&O X 3, pleasant, no acute distress, obese, answers questions appropriately - Respiratory Respiratory exam: Present: CTAB. Absent: accessory muscle use, rales, rhonchi, wheezes - Cardiovascular Cardiovascular exam: Present: RRR, +S1, +S2. Absent: diastolic murmur, gallop, rubs, systolic murmur - GI/Abdominal GI/Abdominal exam: Present: normal bowel sounds, soft, no peritoneal signs. Absent: distended, tenderness - Extremities Exam Extremities exam: Present: warm, radial pulses palpable and symmetrical. Absent : calf tenderness, cyanotic, pedal edema
--- NOTE | 2016-09-27 14:06 | Physician Discharge Referral ---
Home Health/Hosp Referral Info Transfer to: Home Health Provider in Charge Post Discharge: PCP - Diagnosis (1) Abdominal pain Priority: Primary Status: Acute (2) Chronic constipation Priority: Secondary Status: Acute (3) Muscle spasm of both lower legs Priority: Secondary Status: Chronic (4) Thyroid disease Priority: Secondary Status: Chronic (5) HTN (hypertension) Priority: Secondary Status: Chronic (6) Neurogenic bladder Priority: Secondary Status: Acute (7) Nausea & vomiting Priority: Secondary Status: Resolved (8) DVT prophylaxis Priority: Secondary Status: Acute - Respiratory Orders Smoking Cessation: Smoking cessation has been advised. For more information, call the [place] Tobacco Quit Line at 5-524-AHQF-NOW. - Diet/Nutrition Diet/Nutrition Orders: Cardiac - Activity Activity: List: per PT eval - Services Needed Following services are medically necessary services: Nursing, Home Health Aide, Physical Therapy, Occupational Therapy - Transfer Medications Prescriptions: Cyclobenzaprine [Flexeril] 10 mg PO TID #60 tab Linaclotide [Linzess] 145 mcg PO DAILY #30 capsule Home Medications: Celecoxib [Celebrex] 200 mg PO BID 09/25/16 [History] Duloxetine HCl [Cymbalta] 120 mg PO DAILY 09/25/16 [History] HYDROmorphone [Dilaudid] 8 mg PO Q6HR PRN 09/25/16 [History] Levothyroxine [Levothyroxine Sodium] 274 mcg PO DAILY@0630 09/25/16 [History] amLODIPine [Norvasc] 5 mg PO DAILY 09/25/16 [History] diazePAM [Valium] 5 mg PO Q6H PRN 09/25/16 [History] Cyclobenzaprine [Flexeril] 10 mg PO TID #60 tab 09/27/16 [Rx] Linaclotide [Linzess] 145 mcg PO DAILY #30 capsule 09/27/16 [Rx] Allergies/Adverse Reactions: Allergies No Known Allergies Allergy (Verified 10/16/14 16:44) Certification: Further, I certify that my clinical findings support that this patient is homebound (i.e. absences from home require considerable and taxing effort and are for medical reasons or taoist services or infrequently or short duration when for other reasons) because: Homebound Reason: Patient requires assistance of a person or device to safely leave home Attestation: My signature below is to certify that this patient is under my care and that I, or nurse practitioner, or a physician's environmental services assistant working with me, has a face-to -face encounter with this patient.
--- NOTE | 2016-09-28 12:07 | Electrocardiograph Report ---
[place] [id number] Test Date: 2016-09-26 Pat Name: Bobby Muñiz Department: 114 Room: [facility] Gender: M Underwriting Intern: : [id number] Requested By: Ulises Shaffer Order Number: [id number] Reading MD: Erum Calix Measurements Intervals [place] Rate: 56 P: 48 NM: 143 QRS: 31 QRSD: 98 T: 37 QT: 443 QTc: 435 Interpretive Statements SINUS BRADYCARDIA NONSPECIFIC T-WAVE ABNORMALITY Electronically Signed On 09-28-2016 12:05:47 EDT by Erum Calix
== END 2016-09-27 15:00 | disposition home health service (06) | DRG 392 ==
LOC: 3NENU 12:31 → EMEROO 12:31 → 3NENU 17:15
PROVIDERS: ADMIT Internal Medicine Endocrinology, Diabetes & Metabolism; ATTEND Internal Medicine